=== PATIENT | male | born 1980 | race Caucasian/White ===

== ENCOUNTER 2022-03-25 17:21 | Emergency (ER) | payer BC, OTHER ==
[2022-03-25] MEDS ORDERED: Ketorolac Tromethamine 30 MG/ML VIAL ONE (18:05)
[2022-03-25] MEDS ORDERED: diphenhydrAMINE 50 MG/ML VIAL ONE (18:05)
[2022-03-25] MEDS ORDERED: Magnesium 2 GM/50 ML BAG (IN WATER) ONE (18:05)
[2022-03-25] MEDS ORDERED: Metoclopramide HCl 10 MG/2 ML VIAL ONE (18:05)
== END 2022-03-25 19:14 | disposition home or self-care (01) ==
LOC: MADERS 17:21
DX: G43.909 Migraine, unspecified, not intractable, without status migrainosus (principal); F17.210 Nicotine dependence, cigarettes, uncomplicated; Z87.19 Personal history of other diseases of the digestive system
CPT/HCPCS: 96365; 96375; J1200; J1885; J2765; J3475